=== PATIENT | female | born 1990 | race Caucasian/White ===

== ENCOUNTER 2016-11-13 20:30 | Emergency (ER) | payer MEDICAID ==
--- NOTE | 2016-11-21 14:40 | ER ---
ADMIT: 11/13/2016 RM/LOC: ER [facility] MR#: [id number] [address] [facility] [id number] [place], [place] [id number] DOUG JEONG [address] [address] Emergency Room Report SEX: F AGE: 26 : 1990 DATE: 11/13/2016 ADDENDUM: This patient comes into the ER because she has chronic abdominal pain. She is concerned because the pain that she always has on her right side is increased. She know she has cysts on her ovaries, and she is concerned that she might have a torsed ovary. On physical exam, she is alert and calm, tender in the right lower quadrant, which she states is normal for her. She is scheduled to have a hysterectomy in December because of this chronic pain. On physical exam, her abdomen is soft, but it is in the right lower quadrant. Ultrasound was negative for torsed ovary. She did have bacteria in her urine. DIAGNOSES: 1. Chronic pain. 2. Urinary tract infection. I did write for some Percocet for this evening and she is to call Dr. Griffith tomorrow if not better. Please see my T-sheet. JO-ANN Hutson / Benedicto Knight MD / huil JOB #: [id number] CC: Benedicto Knight MD, Attending Physician Traci Griffith MD, Family Physician
[2016-12-16] MEDS ORDERED: MOTRIN-DPS800 MG PO (10:16)
[2016-12-16] MEDS ORDERED: NORCO 5-325 TA1 EACH PO (10:16)
[2016-12-16] MEDS ORDERED: COLACE-DPS100 MG PO (10:16)
[2016-12-16] MEDS ORDERED: MILK OF MA400 MG/5 M PO (10:17)
== END 2016-11-13 23:15 | disposition home or self-care (01) ==
LOC: ER 20:30
DX: N39.0 Urinary tract infection, site not specified (principal); G89.29 Other chronic pain; R10.31 Right lower quadrant pain; F17.210 Nicotine dependence, cigarettes, uncomplicated; Z90.49 Acquired absence of other specified parts of digestive tract; Z79.899 Other long term (current) drug therapy

== ENCOUNTER → 2016-12-09 | Outpatient (CLI) | payer MEDICAID ==
[~2016-12-09] MED LIST: COLACE-DPS100 MG PO; MILK OF MA400 MG/5 M PO; MOTRIN-DPS800 MG PO; NORCO 5-325 TA1 EACH PO
== END | disposition home or self-care (01) ==
LOC: PTH.S 09:48
DX: Z01.812 Encounter for preprocedural laboratory examination (principal); Z79.2 Long term (current) use of antibiotics

== ENCOUNTER 2017-01-03 21:21 | Emergency (ER) | payer MEDICAID ==
--- NOTE | 2017-01-07 15:16 | ER ---
ADMIT: 01/03/2017 RM/LOC: ER [facility] MR#: [id number] [address] [facility] [id number] [place], [place] [id number] DOUG JEONG [address] [address] Emergency Room Report SEX: F AGE: 26 : 1990 DATE: 01/03/2017 ADDENDUM: This patient comes into the ER because she had a hysterectomy on December 13. She was feeling fine and recently been checked by Dr. Griffith. She bent over today and felt a pull in her abdomen. Now, she has pain. She has no vomiting or diarrhea, able to eat and drink normally. She has an appointment with Dr. Griffith tomorrow. On physical exam, she has abdominal pain right above the pubic symphysis. No rebound tenderness or guarding. CBC and BMP are normal. She was given Percocet, which took her pain away. We will have her keep her appointment tomorrow. Please see my T-sheet. JO-ANN Hutson / Regan Gray MD / ward JOB #: [id number] CC: Regan Gray MD, Attending Physician Traci Griffith MD, Family Physician
== END 2017-01-03 23:27 | disposition home or self-care (01) ==
LOC: ER 21:21
PROC: 0T9B70Z Drainage of Bladder with Drainage Device, Via Natural or Artificial Opening (ICD-10-PCS; principal; 2017-01-03)
DX: R10.84 Generalized abdominal pain (principal); Z90.49 Acquired absence of other specified parts of digestive tract; Z90.710 Acquired absence of both cervix and uterus; Z90.721 Acquired absence of ovaries, unilateral; Z98.890 Other specified postprocedural states; Z88.8 Allergy status to other drugs, medicaments and biological substances

== ENCOUNTER → 2017-03-21 | Outpatient (CLI) | payer MEDICAID | END | disposition home or self-care (01) | LOC: RAD.S 15:09 | DX: R10.32 Left lower quadrant pain (principal); Z90.710 Acquired absence of both cervix and uterus; Z90.721 Acquired absence of ovaries, unilateral ==